=== PATIENT | male | born 1965 | race Caucasian/White ===

== ENCOUNTER → 2016-09-11 | Outpatient (CLI) | payer BC ==
[~2016-09-11] MED LIST: ALLOPURINOL100 MG PO; LISINOPRIL40 MG PO; NORVASC10 MG PO
== END | disposition home or self-care (01) ==
DX: R26.2 Difficulty in walking, not elsewhere classified (principal); M16.11 Unilateral primary osteoarthritis, right hip; M25.551 Pain in right hip; M25.651 Stiffness of right hip, not elsewhere classified; M62.81 Muscle weakness (generalized)
CPT/HCPCS: 97110 GP; 97150 GO; 97161 GP; 97165 GO

== ENCOUNTER 2016-10-01 08:48 | Inpatient (IN) | payer BC ==
[~2016-10-01] VITALS: Ht 162.6 cm; Wt 86.1 kg
[2016-10-01 09:41] VITALS: BP 137/86
[2016-10-01 14:01] LABS: HEMATOCRIT 33.9 % (38.0-50.0); MCH 30.1 PG (29.0-34.0); MCHC 33.3 G/DL (30.0-36.0); MCV 90.2 FL (86-99); PLATELET COUNT 208 K/uL (156-360); RBC DIS.WIDTH-CV 13.3 % (11.8-14.6); RBC DIS.WIDTH-SD 44.2 % (39-53); RED BLOOD COUNT 3.76 M/uL (4.00-5.50); WHITE BLOOD COUNT 8.4 K/uL (4.1-10.2)
[2016-10-01 14:31] VITALS: BP 116/64
[2016-10-01 15:56] VITALS: BP 121/70
[2016-10-01 20:25] VITALS: BP 155/75
[2016-10-02 00:11] VITALS: BP 159/78
[2016-10-02 03:49] VITALS: BP 140/73
[2016-10-02 07:13] VITALS: BP 132/68
[2016-10-02 07:13] LABS: ANION GAP 9 MEQ/L (2-14); CHLORIDE 90 MEQ/L (99-109); GFR ESTIMATE (CALCULATED) > 59 mL/min/; GLUCOSE 120 mg/dL (70-99); POTASSIUM 3.8 MEQ/L (3.7-5.4); SAMPLE HEMOLYSIS CHECK 0; SAMPLE ICTERIC CHECK 0; SAMPLE LIPEMIA CHECK 0; SODIUM 125 MEQ/L (136-147); UREA NITROGEN (BUN) 3 mg/dL (9-23)
[2016-10-02 11:26] VITALS: BP 140/73
[2016-10-02 13:20] LABS: HEMATOCRIT 33.1 % (38.0-50.0)
[2016-10-02 16:01] VITALS: BP 137/74
[2016-10-02 23:20] VITALS: BP 129/62
[2016-10-03 06:55] LABS: ANION GAP 7 MEQ/L (2-14); CHLORIDE 99 MEQ/L (99-109); GFR ESTIMATE (CALCULATED) > 59 mL/min/; GLUCOSE 134 mg/dL (70-99); SAMPLE HEMOLYSIS CHECK 0; SAMPLE ICTERIC CHECK 0; SAMPLE LIPEMIA CHECK 0; UREA NITROGEN (BUN) 5 mg/dL (9-23)
[2016-10-03 07:13] LABS: SODIUM 133 MEQ/L (136-147)
[2016-10-03 07:31] VITALS: BP 157/72
[2016-10-03] MEDS ORDERED: LOVENOX40 MG/0.4 SC (08:57)
[2016-10-03] MEDS ORDERED: ENDOCET 5-3251 EACH PO (08:57)
[2016-10-03] MEDS ORDERED: SENNA PLUS TAB1 EACH PO (08:57)
[2016-10-03 10:10] VITALS: BP 127/60
== END 2016-10-03 14:36 | disposition home health service (06) | DRG 470 ==
LOC: 2SOUTH 08:48 → 3EAST 14:17 → 2SOUTH 15:47 → 3EAST 10-03 14:36
PROVIDERS: Nurse Practitioner Family; Orthopaedic Surgery
PROC: 0SR90JZ Replacement of Right Hip Joint with Synthetic Substitute, Open Approach (ICD-10-PCS; principal; 2016-10-01)
DX: M16.11 Unilateral primary osteoarthritis, right hip (principal); M87.851 Other osteonecrosis, right femur; E87.1 Hypo-osmolality and hyponatremia; I10 Essential (primary) hypertension; M10.9 Gout, unspecified; R35.1 Nocturia; Z82.49 Family history of ischemic heart disease and other diseases of the circulatory system; Z87.891 Personal history of nicotine dependence
CPT/HCPCS: 72170; 73501; 80048; 85014; 85018; 85027; J0131; J0690; J1170; J1200; J1650; J2250; J2405; J3010; J7030; J7050

== ENCOUNTER 2016-10-09 16:11 | Inpatient (IN) | payer BC ==
[~2016-10-09] VITALS: Ht 162.6 cm; Wt 87.4 kg
[~2016-10-09 16:11] MED LIST changes: +ENDOCET 5-3251 EACH PO; +LOVENOX40 MG/0.4 SC; +SENNA PLUS TAB1 EACH PO
[2016-10-09 17:28] LABS: HEMATOCRIT 29.3 % (38.0-50.0); MCH 29.6 PG (29.0-34.0); MCHC 33.4 G/DL (30.0-36.0); MCV 88.5 FL (86-99); MEAN PLAT.VOLUME 8.4 uM^3 (9.0-12.4); RBC DIS.WIDTH-CV 12.3 % (11.8-14.6); RBC DIS.WIDTH-SD 39.8 % (39-53); RED BLOOD COUNT 3.31 M/uL (4.00-5.50); WHITE BLOOD COUNT 9.5 K/uL (4.1-10.2)
[2016-10-09 17:29] LABS: PLATELET COUNT 433 K/uL (156-360)
[2016-10-09 17:34] LABS: CHLORIDE 97 mEq/L (99-109); SODIUM 135 mEq/L (136-147)
[2016-10-09 17:36] LABS: GLUCOSE 111 mg/dL (70-99)
[2016-10-09 17:37] LABS: ANION GAP 8 MEQ/L (2-14)
[2016-10-09 17:40] LABS: GFR ESTIMATE (CALCULATED) > 59 mL/min/
[2016-10-09 17:41] LABS: UREA NITROGEN (BUN) 4 mg/dL (9-23)
[2016-10-09 18:06] LABS: ADD MIUA? NO; BILIRUBIN NEGATIVE; BLOOD NEGATIVE; COLOR COLORLESS ((YELLOW)); GLUCOSE (STRIP) NEGATIVE; KETONES NEGATIVE; LEUKOCYTES NEGATIVE; NITRITE NEGATIVE; PROTEIN (STRIP) NEGATIVE; SPECIFIC GRAVITY 1.003 (1.000-1.030); UCUL ADDED? NO; UROBILINOGEN 0.2 MG/DL (0.2-1.0)
[2016-10-09 19:08] LABS: TOTAL BILIRUBIN 0.4 mg/dL (0.0-1.0)
[2016-10-09 19:09] LABS: ALKALINE PHOSPHATASE 48 IU/L (3-129)
[2016-10-09 19:12] LABS: DIRECT BILIRUBIN 0.2 mg/dL (0.0-0.3)
[2016-10-09] MEDS ORDERED: ATARAX,VISTARIL25 MG PO (21:22)
[2016-10-09] MEDS ORDERED: XARELTO10 MG PO (21:22)
[2016-10-09 22:15] VITALS: BP 182/85
[2016-10-09 22:37] VITALS: BP 182/85
[2016-10-09 23:22] VITALS: BP 161/74
[2016-10-10 03:35] VITALS: BP 151/72
[2016-10-10 07:32] VITALS: BP 156/76
[2016-10-10 08:19] LABS: HEMATOCRIT 27.8 % (38.0-50.0); MCH 30.7 PG (29.0-34.0); MCHC 34.9 G/DL (30.0-36.0); MEAN PLAT.VOLUME 8.8 uM^3 (9.0-12.4); PLATELET COUNT 479 K/uL (156-360); RBC DIS.WIDTH-CV 12.4 % (11.8-14.6); RBC DIS.WIDTH-SD 39.8 % (39-53); RED BLOOD COUNT 3.16 M/uL (4.00-5.50); WHITE BLOOD COUNT 9.1 K/uL (4.1-10.2)
[2016-10-10 08:34] LABS: ANION GAP 10 MEQ/L (2-14); CHLORIDE 97 MEQ/L (99-109); GFR ESTIMATE (CALCULATED) > 59 mL/min/; GLUCOSE 113 mg/dL (70-99); POTASSIUM 4.1 MEQ/L (3.7-5.4); SAMPLE HEMOLYSIS CHECK 0; SAMPLE ICTERIC CHECK 0; SAMPLE LIPEMIA CHECK 0; SODIUM 137 MEQ/L (136-147); UREA NITROGEN (BUN) 6 mg/dL (9-23)
[2016-10-10 10:39] VITALS: BP 150/77
[2016-10-10 15:31] VITALS: BP 160/90
[2016-10-10 19:40] VITALS: BP 166/88
[2016-10-10 23:46] VITALS: BP 181/84
[2016-10-11] VITALS (11 sets, daily range): BP systolic 117–178; BP diastolic 56–102
[2016-10-11 03:35] LABS: AMPHETAMINES QUANT VALUE 0 NG/ML; BARBITUATES QUANT VALUE 0 NG/ML; BENZODIAZEPINES QUANT VALUE 0 NG/ML; BENZODIAZEPINES, URINE SCREEN Negative (200 ng/mL); MARIJUANA QUANT VALUE 0 NG/ML; OPIATES QUANTITATIVE VALUE 0 NG/ML; PHENCYCLIDINE QUANT VALUE 0 NG/ML
[2016-10-11 05:33] LABS: HEMATOCRIT 30.5 % (38.0-50.0); MCH 29.6 PG (29.0-34.0); MCHC 34.1 G/DL (30.0-36.0); MCV 86.9 FL (86-99); MEAN PLAT.VOLUME 8.7 uM^3 (9.0-12.4); PLATELET COUNT 556 K/uL (156-360); RBC DIS.WIDTH-CV 12.3 % (11.8-14.6); RBC DIS.WIDTH-SD 39.2 % (39-53); RED BLOOD COUNT 3.51 M/uL (4.00-5.50); WHITE BLOOD COUNT 11.4 K/uL (4.1-10.2)
[2016-10-11 05:37] LABS: CHLORIDE 94 mEq/L (99-109); POTASSIUM 3.8 mEq/L (3.7-5.4); SODIUM 132 mEq/L (136-147)
[2016-10-11 05:39] LABS: GLUCOSE 109 mg/dL (70-99)
[2016-10-11 05:40] LABS: ANION GAP 12 MEQ/L (2-14)
[2016-10-11 05:43] LABS: ALKALINE PHOSPHATASE 54 IU/L (3-129); GFR ESTIMATE (CALCULATED) > 59 mL/min/
[2016-10-11 05:44] LABS: UREA NITROGEN (BUN) 9 mg/dL (9-23)
[2016-10-11 05:45] LABS: TOTAL BILIRUBIN 0.6 mg/dL (0.0-1.0)
[2016-10-11 11:52] LABS: POINT-OF-CARE METER ID UU14149397
[2016-10-11 17:14] LABS: BASOPHIL COUNT 0.1 K/uL (0-0.1); EOSINOPHIL (%) 0.4 % (0-5); EOSINOPHIL COUNT 0.1 K/uL (0-0.3); IMMATURE GRANULOCYTE (%) 1.5 % (0.0-0.7); IMMATURE GRANULOCYTE COUNT 0.2 K/uL; INSTRUMENT ABS NEUTROPHIL CT 9.2 K/uL; LYMPHOCYTE COUNT 1.4 K/uL (1.0-2.8); MCH 29.5 PG (29.0-34.0); MCHC 34.1 G/DL (30.0-36.0); MCV 86.3 FL (86-99); MEAN PLAT.VOLUME 8.4 uM^3 (9.0-12.4); MONOCYTE (%) 9.6 % (3-12); MONOCYTE COUNT 1.2 K/uL (0-0.8); NEUTROPHIL (%) 76.2 % (45-76); NEUTROPHIL COUNT 9.2 K/uL (1.8-6.4); PLATELET COUNT 506 K/uL (156-360); RBC DIS.WIDTH-CV 12.4 % (11.8-14.6); RBC DIS.WIDTH-SD 39.6 % (39-53); RED BLOOD COUNT 3.36 M/uL (4.00-5.50); WHITE BLOOD COUNT 12.1 K/uL (4.1-10.2)
[2016-10-11 17:23] LABS: BASE EXCESS 4.6 mEq/L (-3 to +3); BICARBONATE 31.1 mEq/L (22-26); CARBOXY HGB 2.1 % (0-5); COMMENTS - BLOOD GASES A+C+; DEVICE NC; METHEMOGLOBIN 1.5 % (0-1.5); O2 FLOW 4 L/MIN; PCO2 55 mm Hg (35-45); PO2 69 mm Hg (80-100); SITE RR; TOTAL RESP RATE 17 resp/min; pH 7.36 (7.35-7.45)
[2016-10-11 17:29] LABS: ALKALINE PHOSPHATASE 44 IU/L (3-129); ANION GAP 14 MEQ/L (2-14); CHLORIDE 95 MEQ/L (99-109); DIRECT BILIRUBIN 0.1 mg/dL (0.0-0.3); GFR ESTIMATE (CALCULATED) > 59 mL/min/; GLUCOSE 115 mg/dL (70-99); POTASSIUM 3.7 MEQ/L (3.7-5.4); SAMPLE HEMOLYSIS CHECK 0; SAMPLE ICTERIC CHECK 0; SAMPLE LIPEMIA CHECK 0; SODIUM 133 MEQ/L (136-147); TOTAL BILIRUBIN 0.4 MG/DL (0.0-1.0); UREA NITROGEN (BUN) 8 mg/dL (9-23)
[2016-10-11 18:14] LABS: METH RESISTANT S AUREUS PCR NEGATIVE (NEGATIVE)
[2016-10-11 18:29] LABS: PROBE CHECK PASS; SPECIMEN PROCESSING CONTROL PASS
[2016-10-11 21:22] LABS: ADD MIUA? NO; BILIRUBIN NEGATIVE; BLOOD NEGATIVE; COLOR STRAW ((YELLOW)); GLUCOSE (STRIP) NEGATIVE; KETONES NEGATIVE; LEUKOCYTES NEGATIVE; NITRITE NEGATIVE; PROTEIN (STRIP) NEGATIVE; SPECIFIC GRAVITY 1.006 (1.000-1.030); UCUL ADDED? NO; UROBILINOGEN 0.2 MG/DL (0.2-1.0)
[2016-10-12] VITALS (12 sets, daily range): BP systolic 112–149; BP diastolic 64–80
[2016-10-12 03:48] LABS: POINT-OF-CARE METER ID UU14174217
[2016-10-12 05:59] LABS: BASOPHIL COUNT 0.1 K/uL (0-0.1); EOSINOPHIL (%) 1.4 % (0-5); EOSINOPHIL COUNT 0.1 K/uL (0-0.3); HEMATOCRIT 30.7 % (38.0-50.0); IMMATURE GRANULOCYTE (%) 0.9 % (0.0-0.7); IMMATURE GRANULOCYTE COUNT 0.1 K/uL; INSTRUMENT ABS NEUTROPHIL CT 6.7 K/uL; LYMPHOCYTE COUNT 1.9 K/uL (1.0-2.8); MCH 29.2 PG (29.0-34.0); MCHC 32.9 G/DL (30.0-36.0); MCV 88.7 FL (86-99); MEAN PLAT.VOLUME 8.5 uM^3 (9.0-12.4); MONOCYTE (%) 9.7 % (3-12); NEUTROPHIL (%) 67.8 % (45-76); NEUTROPHIL COUNT 6.7 K/uL (1.8-6.4); PLATELET COUNT 549 K/uL (156-360); RBC DIS.WIDTH-CV 12.5 % (11.8-14.6); RBC DIS.WIDTH-SD 40.7 % (39-53); RED BLOOD COUNT 3.46 M/uL (4.00-5.50); WHITE BLOOD COUNT 9.8 K/uL (4.1-10.2)
[2016-10-12 06:22] LABS: ANION GAP 11 MEQ/L (2-14); CHLORIDE 100 MEQ/L (99-109); GFR ESTIMATE (CALCULATED) > 59 mL/min/; GLUCOSE 88 mg/dL (70-99); POTASSIUM 4.3 MEQ/L (3.7-5.4); SAMPLE HEMOLYSIS CHECK 0; SAMPLE ICTERIC CHECK 0; SAMPLE LIPEMIA CHECK 0; SODIUM 139 MEQ/L (136-147); UREA NITROGEN (BUN) 9 mg/dL (9-23)
[2016-10-12 06:29] LABS: MAGNESIUM 2.8 mg/dl (1.3-2.7)
[2016-10-12 06:53] LABS: POINT-OF-CARE METER ID UU14174217
[2016-10-12 18:04] LABS: POINT-OF-CARE METER ID UU14174217
[2016-10-13 01:51] LABS: POINT-OF-CARE METER ID UU13113803
[2016-10-13 05:29] LABS: BASOPHIL COUNT 0.1 K/uL (0-0.1); EOSINOPHIL (%) 1.8 % (0-5); EOSINOPHIL COUNT 0.2 K/uL (0-0.3); HEMATOCRIT 28.9 % (38.0-50.0); IMMATURE GRANULOCYTE (%) 1.4 % (0.0-0.7); IMMATURE GRANULOCYTE COUNT 0.1 K/uL; INSTRUMENT ABS NEUTROPHIL CT 6.5 K/uL; LYMPHOCYTE COUNT 2.1 K/uL (1.0-2.8); MCH 29.4 PG (29.0-34.0); MCHC 33.2 G/DL (30.0-36.0); MCV 88.4 FL (86-99); MEAN PLAT.VOLUME 8.6 uM^3 (9.0-12.4); MONOCYTE (%) 9.1 % (3-12); MONOCYTE COUNT 0.9 K/uL (0-0.8); NEUTROPHIL (%) 65.9 % (45-76); NEUTROPHIL COUNT 6.5 K/uL (1.8-6.4); PLATELET COUNT 533 K/uL (156-360); RBC DIS.WIDTH-CV 12.4 % (11.8-14.6); RED BLOOD COUNT 3.27 M/uL (4.00-5.50); WHITE BLOOD COUNT 9.9 K/uL (4.1-10.2)
[2016-10-13 06:25] LABS: POINT-OF-CARE METER ID UU14174217
[2016-10-13 06:33] LABS: ANION GAP 8 MEQ/L (2-14); CHLORIDE 104 MEQ/L (99-109); GFR ESTIMATE (CALCULATED) > 59 mL/min/; GLUCOSE 93 mg/dL (70-99); MAGNESIUM 2.6 mg/dl (1.3-2.7); POTASSIUM 4.1 MEQ/L (3.7-5.4); SAMPLE HEMOLYSIS CHECK 0; SAMPLE ICTERIC CHECK 0; SAMPLE LIPEMIA CHECK 0; SODIUM 140 MEQ/L (136-147); UREA NITROGEN (BUN) 10 mg/dL (9-23)
[2016-10-13 08:30] VITALS: BP 134/63
[2016-10-13 12:00] VITALS: BP 138/70
[2016-10-13 16:00] VITALS: BP 141/69
[2016-10-13 19:00] VITALS: BP 112/63
[2016-10-13 22:00] VITALS: BP 144/73
[2016-10-14] VITALS (10 sets, daily range): BP systolic 125–167; BP diastolic 63–93
[2016-10-14 06:52] LABS: BASOPHIL COUNT 0.1 K/uL (0-0.1); EOSINOPHIL (%) 1.4 % (0-5); EOSINOPHIL COUNT 0.2 K/uL (0-0.3); HEMATOCRIT 31.1 % (38.0-50.0); IMMATURE GRANULOCYTE (%) 1.1 % (0.0-0.7); IMMATURE GRANULOCYTE COUNT 0.1 K/uL; INSTRUMENT ABS NEUTROPHIL CT 9.1 K/uL; LYMPHOCYTE COUNT 1.9 K/uL (1.0-2.8); MCH 29.3 PG (29.0-34.0); MCHC 33.1 G/DL (30.0-36.0); MCV 88.6 FL (86-99); MEAN PLAT.VOLUME 8.6 uM^3 (9.0-12.4); MONOCYTE (%) 8.2 % (3-12); NEUTROPHIL (%) 73.2 % (45-76); NEUTROPHIL COUNT 9.1 K/uL (1.8-6.4); PLATELET COUNT 596 K/uL (156-360); RBC DIS.WIDTH-CV 12.7 % (11.8-14.6); RBC DIS.WIDTH-SD 40.9 % (39-53); RED BLOOD COUNT 3.51 M/uL (4.00-5.50); WHITE BLOOD COUNT 12.4 K/uL (4.1-10.2)
[2016-10-14 07:23] LABS: ANION GAP 9 MEQ/L (2-14); CHLORIDE 100 MEQ/L (99-109); GFR ESTIMATE (CALCULATED) > 59 mL/min/; GLUCOSE 95 mg/dL (70-99); SAMPLE HEMOLYSIS CHECK 0; SAMPLE ICTERIC CHECK 0; SAMPLE LIPEMIA CHECK 0; SODIUM 137 MEQ/L (136-147); UREA NITROGEN (BUN) 7 mg/dL (9-23)
[2016-10-15 03:53] VITALS: BP 140/71
[2016-10-15 06:39] LABS: BASOPHIL COUNT 0.1 K/uL (0-0.1); EOSINOPHIL (%) 1.4 % (0-5); EOSINOPHIL COUNT 0.2 K/uL (0-0.3); IMMATURE GRANULOCYTE COUNT 0.1 K/uL; INSTRUMENT ABS NEUTROPHIL CT 9.3 K/uL; LYMPHOCYTE COUNT 1.7 K/uL (1.0-2.8); MCH 29.2 PG (29.0-34.0); MCHC 32.8 G/DL (30.0-36.0); MCV 88.9 FL (86-99); MEAN PLAT.VOLUME 8.5 uM^3 (9.0-12.4); NEUTROPHIL (%) 75.4 % (45-76); NEUTROPHIL COUNT 9.3 K/uL (1.8-6.4); PLATELET COUNT 613 K/uL (156-360); RBC DIS.WIDTH-CV 12.6 % (11.8-14.6); RBC DIS.WIDTH-SD 41.4 % (39-53); WHITE BLOOD COUNT 12.3 K/uL (4.1-10.2)
[2016-10-15 07:10] LABS: ANION GAP 11 MEQ/L (2-14); CHLORIDE 100 MEQ/L (99-109); GFR ESTIMATE (CALCULATED) > 59 mL/min/; GLUCOSE 99 mg/dL (70-99); MAGNESIUM 2.1 mg/dl (1.3-2.7); POTASSIUM 4.3 MEQ/L (3.7-5.4); SAMPLE HEMOLYSIS CHECK 2; SAMPLE ICTERIC CHECK 0; SAMPLE LIPEMIA CHECK 0; SODIUM 138 MEQ/L (136-147); UREA NITROGEN (BUN) 7 mg/dL (9-23)
[2016-10-15 08:07] VITALS: BP 137/81
[2016-10-15 11:56] VITALS: BP 164/80
[2016-10-15 11:59] LABS: URIC ACID 5.3 mg/dL (3.1-9.2)
[2016-10-15] MEDS ORDERED: Colchicine,Colcrys PO (15:05)
[2016-10-15] MEDS ORDERED: ELIQUIS2.5 MG PO (15:05)
[2016-10-15 16:00] VITALS: BP 142/63
[2016-10-15] MEDS ORDERED: PEPCID20 MG PO (19:29)
[2016-10-15] MEDS ORDERED: THIAMINE HCL100 MG PO (19:29)
[2016-10-15] MEDS ORDERED: FOLIC ACID1 MG PO (19:29)
[2016-10-15] MEDS ORDERED: LIBRIUM25 MG PO (19:30)
[2016-10-15] MEDS ORDERED: TYLENOL REGULA325 MG PO (19:31)
== END 2016-10-15 17:30 | DRG 948 ==
LOC: EME 16:11 → EDOF 20:21 → 3EAST 20:21 → EDOF 20:21 → 3EAST 21:59 → 4WEST 10-11 15:52 → 3EAST 10-11 15:52 → 4WEST 10-11 16:35 → 3EAST 10-14 02:35
PROVIDERS: Hospitalist; Internal Medicine; Internal Medicine Nephrology; Nurse Practitioner Family; Physician Assistant
PROC: HZ2ZZZZ Detoxification Services for Substance Abuse Treatment (ICD-10-PCS; principal; 2016-10-11)
PROC: 5A09357 Assistance with Respiratory Ventilation, Less than 24 Consecutive Hours, Continuous Positive Airway Pressure (ICD-10-PCS; principal; 2016-10-11)
DX: R41.0 Disorientation, unspecified (principal); T40.2X5A Adverse effect of other opioids, initial encounter; T43.595A Adverse effect of other antipsychotics and neuroleptics, initial encounter; E83.119 Hemochromatosis, unspecified; E87.1 Hypo-osmolality and hyponatremia; R09.02 Hypoxemia; G47.00 Insomnia, unspecified; D64.9 Anemia, unspecified; M10.9 Gout, unspecified; E66.9 Obesity, unspecified; G47.33 Obstructive sleep apnea (adult) (pediatric); I10 Essential (primary) hypertension; K76.0 Fatty (change of) liver, not elsewhere classified; F17.210 Nicotine dependence, cigarettes, uncomplicated; F41.9 Anxiety disorder, unspecified; M79.661 Pain in right lower leg; Z96.641 Presence of right artificial hip joint; Z91.81 History of falling; Z75.1 Person awaiting admission to adequate facility elsewhere; Z72.820 Sleep deprivation; Z68.34 Body mass index [BMI] 34.0-34.9, adult
CPT/HCPCS: 36600; 70450; 71020; 80048; 80048 91; 80053; 80076; 80306 90; 81003; 82140; 82803; 82948; 83605; 83735; 84100; 84550; 85025; 85027; 87040; 87641; 93005; 93971; 94660; 97530 GP; 99202; 99281; 99285; G0378; G8987 GO CJ; G8988 GO CH; J1630; J1815; J2060; J3360; J3411; J3475; J7030; J7120; S0028

== ENCOUNTER 2016-10-15 15:48 | Inpatient (IN) | payer BC ==
[~2016-10-15] VITALS: Ht 162.6 cm; Wt 84.6 kg
[~2016-10-15 15:48] MED LIST changes: +ATARAX,VISTARIL25 MG PO; +Colchicine,Colcrys PO; +ELIQUIS2.5 MG PO; +XARELTO10 MG PO
[2016-10-15 17:35] VITALS: BP 135/74
[2016-10-15] MEDS ORDERED: THIAMINE HCL100 MG PO (19:29)
[2016-10-15] MEDS ORDERED: PEPCID20 MG PO (19:29)
[2016-10-15] MEDS ORDERED: FOLIC ACID1 MG PO (19:29)
[2016-10-15] MEDS ORDERED: LIBRIUM25 MG PO (19:30)
[2016-10-15] MEDS ORDERED: TYLENOL REGULA325 MG PO (19:31)
[2016-10-15 23:18] VITALS: BP 128/60
[2016-10-16 05:12] VITALS: BP 116/74
[2016-10-16 07:11] LABS: HEMATOCRIT 33.9 % (38.0-50.0); MCH 29.7 PG (29.0-34.0); MCHC 33.3 G/DL (30.0-36.0); MCV 89.2 FL (86-99); MEAN PLAT.VOLUME 8.7 uM^3 (9.0-12.4); PLATELET COUNT 628 K/uL (156-360); RBC DIS.WIDTH-CV 12.6 % (11.8-14.6); RBC DIS.WIDTH-SD 41.3 % (39-53); WHITE BLOOD COUNT 11.2 K/uL (4.1-10.2)
[2016-10-16 07:57] LABS: ALKALINE PHOSPHATASE 61 IU/L (3-129); ANION GAP 10 MEQ/L (2-14); CHLORIDE 99 MEQ/L (99-109); GFR ESTIMATE (CALCULATED) > 59 mL/min/; GLUCOSE 115 mg/dL (70-99); POTASSIUM 4.5 MEQ/L (3.7-5.4); SAMPLE HEMOLYSIS CHECK 0; SAMPLE ICTERIC CHECK 0; SAMPLE LIPEMIA CHECK 0; SODIUM 137 MEQ/L (136-147); UREA NITROGEN (BUN) 8 mg/dL (9-23)
[2016-10-16 07:58] LABS: TOTAL BILIRUBIN 0.5 MG/DL (0.0-1.0)
[2016-10-16 15:40] VITALS: BP 142/67
[2016-10-17 05:09] VITALS: BP 121/75
[2016-10-17 16:34] VITALS: BP 113/59
[2016-10-18 05:00] VITALS: BP 128/66
[2016-10-18 15:10] VITALS: BP 115/62
[2016-10-19 06:10] VITALS: BP 109/57
[2016-10-19 08:26] VITALS: BP 148/69
[2016-10-19 15:06] VITALS: BP 135/65
[2016-10-20 04:53] VITALS: BP 143/66
[2016-10-20 15:34] VITALS: BP 138/75
[2016-10-21 05:44] VITALS: BP 131/65
[2016-10-21 15:07] VITALS: BP 128/62
[2016-10-22 05:46] VITALS: BP 137/71
[2016-10-22 05:51] LABS: MCH 29.2 PG (29.0-34.0); MCHC 33.4 G/DL (30.0-36.0); MCV 87.2 FL (86-99); MEAN PLAT.VOLUME 8.9 uM^3 (9.0-12.4); PLATELET COUNT 470 K/uL (156-360); RBC DIS.WIDTH-CV 12.4 % (11.8-14.6); RBC DIS.WIDTH-SD 39.8 % (39-53); RED BLOOD COUNT 3.67 M/uL (4.00-5.50); WHITE BLOOD COUNT 7.2 K/uL (4.1-10.2)
[2016-10-22 06:27] LABS: ALKALINE PHOSPHATASE 62 IU/L (3-129); ANION GAP 8 MEQ/L (2-14); CHLORIDE 100 MEQ/L (99-109); GFR ESTIMATE (CALCULATED) > 59 mL/min/; GLUCOSE 86 mg/dL (70-99); POTASSIUM 4.2 MEQ/L (3.7-5.4); SAMPLE HEMOLYSIS CHECK 0; SAMPLE ICTERIC CHECK 0; SAMPLE LIPEMIA CHECK 0; SODIUM 138 MEQ/L (136-147); UREA NITROGEN (BUN) 8 mg/dL (9-23)
[2016-10-22 06:40] LABS: TOTAL BILIRUBIN 0.2 MG/DL (0.0-1.0)
[2016-10-22] MEDS ORDERED: ACETAMINOPHEN-1 EAC1 PO ×2 (10:13→10:17)
[2016-10-22] MEDS ORDERED: Colchicine,Colcrys PO (10:13)
[2016-10-22] MEDS ORDERED: TYLENOL REGULA325 MG PO (10:13)
[2016-10-22] MEDS ORDERED: ELIQUIS2.5 MG PO (10:13)
== END 2016-10-22 13:02 | disposition home health service (06) | DRG 560 ==
LOC: 3WEST 15:48
PROVIDERS: Physical Medicine & Rehabilitation Pain Medicine; Psychiatry & Neurology Neurology
PROC: F07M0ZZ Range of Motion and Joint Mobility Treatment of Musculoskeletal System - Whole Body (ICD-10-PCS; principal; 2016-10-15)
DX: Z47.1 Aftercare following joint replacement surgery (principal); R26.2 Difficulty in walking, not elsewhere classified; Z96.641 Presence of right artificial hip joint; D62 Acute posthemorrhagic anemia; D72.829 Elevated white blood cell count, unspecified; E83.119 Hemochromatosis, unspecified; F22 Delusional disorders; I10 Essential (primary) hypertension; M10.072 Idiopathic gout, left ankle and foot; M16.12 Unilateral primary osteoarthritis, left hip; Z68.32 Body mass index [BMI] 32.0-32.9, adult; Z87.891 Personal history of nicotine dependence; R06.02 Shortness of breath; R41.0 Disorientation, unspecified
CPT/HCPCS: 80053; 85027; 97110 GO; 97530 GP; 99202